=== PATIENT | male | born 1970 | race Caucasian/White ===

== ENCOUNTER 2018-05-14 11:55 | Emergency (ER) | payer OTHER ==
[~2018-05-14] VITALS: Wt 97.0 kg
[~2018-05-14 11:55] MED LIST: ASPI-727 PO; GLIP10TA14 PO; MTF1000T PO; SITA25TA3 PO
[2018-05-14 11:58] VITALS: BP 138/85; PULSE 88; RESP 18
--- NOTE | 2018-05-14 14:18 | ERD ---
ER Documentation Chief Complaint Chief Complaint VELASQUEZ RAD NECK ARM, LEG PAIN/NUMBNESS X 4 DAYS HPI 47-year-old male, with history of diabetes, presents to the emergency department, complaining of 4 days with left hand and facial numbness. He denies headaches, no tingling, no blurred vision. No history of previous episodes. No medications taken today. ROS All systems reviewed and are negative except as per history of present illness. Medications Home Meds Active Scripts Ibuprofen* (Motrin*) 400 Mg Tab, 400 MG PO Q8, #20 TAB Prov:MARIELA APONTE MD 05/14/18 Acetaminophen* (Tylenol*) 325 Mg Tablet, 2 TAB PO Q8 PRN for PAIN AND OR ION VATED TEMP, #20 TAB Prov:MARIELA APONTE MD 05/14/18 Reported Medications Sitagliptin* (Januvia*) Unknown Strength Tablet, PO DAILY, TAB 08/19/14 Aspirin (Adult Aspirin) 81 Mg Tab.chew, 81 MG PO DAILY 12/24/11 Metformin* (Glucophage*) 1,000 Mg Tablet, 1000 MG PO BID 12/24/11 Glipizide* (Glipizide*) 10 Mg Tablet, 10 MG PO BID 12/24/11 Allergies Allergies: Coded Allergies: No Known Allergy (Unverified , 08/18/14) PMhx/Soc History of Surgery: No (NA) Anesthesia Reaction: No Hx Neurological Disorder: No Hx Respiratory Disorders: No Hx Cardiac Disorders: No Hx Psychiatric Problems: No Hx Miscellaneous Medical Probl: Yes (DM) Hx Alcohol Use: No Hx Substance Use: No Hx Tobacco Use: No FmHx Family History: diabetes; No coronary disease Physical Exam Vitals Vital Signs Date Temp Pulse Resp B/P (MAP) Pulse Ox O2 O2 Flow FiO2 Time Delivery Rate 05/14/18 97.8 88 18 138/85 99 11:58 (102) Physical Exam Const: No acute distress Head: Atraumatic Eyes: Normal Conjunctiva ENT: Normal External Ears, Nose and Mouth. Neck: Full range of motion. No meningismus. Resp: Clear to auscultation bilaterally Cardio: Regular rate and rhythm, no murmurs Abd: Soft, non tender, non distended. Normal bowel sounds Skin: No petechiae or rashes Back: No midline or flank tenderness Ext: No cyanosis, or edema Neur: Awake and alert Psych: Normal Mood and Affect Result Diagram: 05/14/18 1459 05/14/18 1459 Results 24 hrs Laboratory Tests Test 05/14/18 14:59 White Blood Count 6.8 10^3/ul Red Blood Count 5.10 10^6/ul Hemoglobin 13.5 g/dl Hematocrit 40.5 % Mean Corpuscular Volume 79.4 fl Mean Corpuscular Hemoglobin 26.5 pg Mean Corpuscular Hemoglobin Concent 33.3 g/dl Red Cell Distribution Width 13.7 % Platelet Count 244 10^3/UL Mean Platelet Volume 11.5 fl Immature Granulocytes % 0.900 % Neutrophils % 56.7 % Lymphocytes % 29.1 % Monocytes % 8.0 % Eosinophils % 4.7 % Basophils % 0.6 % Nucleated Red Blood Cells % 0.0 /100WBC Immature Granulocytes # 0.060 10^3/ul Neutrophils # 3.8 10^3/ul Lymphocytes # 2.0 10^3/ul Monocytes # 0.5 10^3/ul Eosinophils # 0.3 10^3/ul Basophils # 0.0 10^3/ul Nucleated Red Blood Cells # 0.0 10^3/ul Urine Color YELLOW Urine Clarity CLEAR Urine pH 5.0 Urine Specific [place] 1.026 Urine Ketones NEGATIVE mg/dL Urine Nitrite NEGATIVE mg/dL Urine Bilirubin NEGATIVE mg/dL Urine Urobilinogen NEGATIVE mg/dL Urine Leukocyte Esterase NEGATIVE Rand/ul Urine Microscopic RBC 0 /HPF Urine Microscopic WBC 0 /HPF Urine Bacteria FEW /HPF Urine Hemoglobin NEGATIVE mg/dL Urine Glucose 3+ mg/dL Urine Total Protein 1+ mg/dl Sodium Level 135 mmol/L Potassium Level 4.6 mmol/L Chloride Level 98 mmol/L Carbon Dioxide Level 25 mmol/L Anion Gap 12 Blood Urea Nitrogen 20 mg/dl Creatinine 0.95 mg/dl Est Glomerular Filtrat Rate mL/min > 60 mL/min Glucose Level 370 mg/dl Calcium Level 9.5 mg/dl EKG read by me: Rate/Rhythm: Regular rate and rhythm at a rate of 78 Intervals: Normal, NC [address] changes. No T wave inversion Impression: No evidence of acute ischemia or arrhythmia DIAGNOSTIC IMAGING REPORT Patient: RONEN MENDOZA : 1970 Age: 47 Sex: M MR #: [id number] [facility] #: [id number] DOS: 05/14/18 1441 Ordering MD: MARIELA APONTE MD Location: [facility]TE Room/Bed: PROCEDURE: CT Brain without contrast. CLINICAL INDICATION: Pain, headache TECHNIQUE: Routine CT scan of the brain was performed on a high resolution mul ti detector scanner without intravenous contrast. One or more of the following dose reduction techniques were used: Automated exposure control; Adjustment of the mA and/or kV according to patient size; Use of iterative reconstruction technique. CTDI = 38 mGy. DLP = 713 mGy-cm. DICOM images are available. COMPARISON: CT BRAIN 08/18/2014 FINDINGS: Hemorrhage: No evidence of intracranial hemorrhage. Acute ischemic changes: No evidence of acute ischemic changes. Mass effect: None. Parenchymal volume: Within normal limits for age. Ventricular system: Concordant with parenchymal volume. Chronic changes: Parenchymal attenuation is within normal limits. Extracranial soft tissues: Unremarkable. Calvarium: No fractures. Paranasal sinuses: Visualized paranasal sinuses are clear. Mastoid air cells: Visualized mastoid air cells are clear. IMPRESSION: No acute intracranial abnormalities. Normal appearance of the brain parenchyma. RPTAT: AADD .Regan Sarabia MD, MD Date Time Electronically viewed and signed by .Regan Sarabia MD, MD on 05/14/2018 15:50 .B/ CC: MARIELA APONTE MD [id number] Procedures/MDM Vital signs stable, Physical exam unremarkable, neurovascular exam intact. Differential diagnosis include but not limited to peripheral neuropathy, poorly controlled diabetes mellitus, dehydration, thyroid disease, infection, hormonal imbalance, electrolyte problem, anemia, side effects of the medications, hypoglycemia. CT of the head, electrocardiogram and blood work were performed to evaluate for possible stroke or acute coronary syndrome. Physical examination and clinical presentation consistent most likely with uncontrolled diabetes mellitus with peripheral neuropathy. During the ED course the patient remained stable, no new complaints. Results and clinical impression discussed with patient who agrees with management. The patient is stable to be treated outpatient and will be dis charged home with instructions to follow up with the primary care provider in the next 48h. If symptoms persist, worsen or new symptoms develop, then patient should return to the ED immediately. Instructions explained and given directly by me to the patient with acknowledgment and demonstrated understanding. Disclaimer: Inadvertent spelling and grammatical errors are likely due to EHR/dictation software use and do not reflect on the overall quality of patient care. Also, please note that the electronic time recorded on this note does not necessarily reflect the actual time of the patient encounter. Departure Diagnosis: Primary Impression: Diabetic neuropathy Additional Impression: Uncontrolled diabetes mellitus Condition: Stable Additional Instructions: Muchas guevara por [facility] para corbett servicio. Esperamos que en corbett visita a la betty de emergencia corbett problema medico haya sido solucionado y que se sienta mucho mejor. Para estar seguros que corbett mejoria sigue en proceso, le pedimos el favor de hacer татьяна janine de seguimiento medico con corbett doctor primario en los proximos 2-4 gee. Lleve con usted estos documentos y las medicinas recetadas. Si estela sintomas empeoran, NO SE ESPERE, por favor regrese a betty de emergencia INMEDIATAMENTE. En misael que usted no tenga un mdico de atencin primaria: Llame al mdico o clnica comunitaria de referencia que aparece abajo ryder las horas de consultorio para hacer татьяна janine para que le vean. CLINICAS: [facility] [phone] [facility] [phone] [facility] [phone] [place] [phone] [place] [phone] [facility]. [phone] MARIELA REY MD May 14, 2018 14:18
[2018-05-14] MEDS ORDERED: ACET325T33 PO (16:16)
[2018-05-14] MEDS ORDERED: IBUP-1561 PO (16:16)
== END 2018-05-14 16:49 | disposition home or self-care (01) ==
LOC: FTE 11:55
DX: E11.40 Type 2 diabetes mellitus with diabetic neuropathy, unspecified (principal); E11.9 Type 2 diabetes mellitus without complications; Z79.82 Long term (current) use of aspirin; Z79.84 Long term (current) use of oral hypoglycemic drugs
CPT/HCPCS: 36415; 70450; 80048; 81001; 85025; 93005; Z7502